=== PATIENT | female | born 1960 | race Caucasian/White ===

== ENCOUNTER 2024-07-01 18:37 | Emergency (ER) | payer SELFPAY ==
[2024-07-01 18:43] VITALS: BP 172/116; PULSE 95; RESP 18; TEMP 36.8; O2SAT 93; BMI 31.3
--- NOTE | 2024-07-01 18:48 | ECG_ITS ---
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 Measurements Intervals [place] Rate: 90 P: 83 AL: 145 QRS: 105 QRSD: 97 T: 86 QT: 369 QTc: 452 Interpretive Statements SINUS RHYTHM POSSIBLE RIGHT VENTRICULAR HYPERTROPHY [SOME/ALL OF: PROMINENT R IN V1, LATE TRANSITION, RAD, MARISELA, SSS] No previous ECG available for comparison Electronically Signed On 07-02-2024 13:25:25 IUSS ACOUSTIC ANALYST by Tong Lyn M.D. [id number]
--- NOTE | 2024-07-01 19:39 | XRR_ITS ---
PROCEDURE INFORMATION: Exam: XR Chest Exam date and time: 07/01/2024 8:41 PM Age: 63 years old Clinical indication: Cough and shortness of breath; Patient HX: Cough; SOB TECHNIQUE: Imaging protocol: Radiologic exam of the chest. Views: 1 view. COMPARISON: No relevant prior studies available. FINDINGS: Lungs: Patchy peripheral right lung opacities. Pleural spaces: No pleural effusion. No pneumothorax. Heart/Mediastinum: No cardiomegaly. Bones/joints: No acute findings. XR/XR chest 1V portable [id number] IMPRESSION: Patchy peripheral right lung opacities concerning for infection. Recommend follow-up imaging to ensure resolution.
[2024-07-01 20:33] LABS: Covid PCR NEGATIVE (Negative); Influenza A NEGATIVE (Negative); Influenza B NEGATIVE (Negative); Respiratory Syncytial Virus Ce NEGATIVE (Negative)
[2024-07-01] MEDS: methylPREDNISolone sod succ 125 mg/2 mL INJ IVP (21:19)
[2024-07-01] MEDS: doxycycline 100 mg Tablet PO (21:19)
[2024-07-01 21:36] VITALS: BP 156/93; PULSE 93; O2SAT 93
[2024-07-01 21:40] VITALS: PULSE 71; RESP 18; O2SAT 94
[2024-07-01] MEDS: ipratropium-albuterol 3 mL Neb INHALATION ×3 (21:40→23:55)
[2024-07-01 21:47] VITALS: PULSE 69
[2024-07-01 22:48] VITALS: BP 145/77; PULSE 86; RESP 18; O2SAT 91
--- NOTE | 2024-07-01 23:19 | W.ED.URI ---
Documented by User: JON Myers 07/02/24 01:04 HPI - URI/Sore Throat General: Chief Complaint: Upper Respiratory Infection Stated Complaint: Cant Breathe SOB Time Seen by Provider: 07/01/24 20:42 History of Present Illness: Patient is a 63-year-old female that presents to the emergency department with complaints of URI type symptoms and shortness of breath. Onset of symptoms 1 month ago but just not getting better. She arrived in the emergency department with oxygen saturation in the low 90s. She has a very coarse cough. Patient denies fevers but reports chills. She denies prior pulmonary history. Denies primary care services. Takes no routine medicines. Associated symptoms: Reports chills and fever(s) Related Data Previous Rx's Medication Instructions Recorded albuterol 90 mcg-budesonide 80 2 inh inhalation QID PRN shortness 07/01/24 mcg/actuation HFA aerosol inhaler of breath #5.9 grams doxycycline hyclate 100 mg tablet 100 mg PO BID 5 days #10 tabs 07/01/24 Allergies Allergy/AdvReac Type Severity Reaction Status Date / Time meperidine [From Demerol] Allergy ADR-Fatigue Verified 07/01/24 18:45 d Review of Systems General: Reports: 10 or more systems reviewed and unremarkable except in HPI and below Const: Reports: fever(s), chills and fatigue Resp: Reports: dyspnea, productive cough, wheezing, change in phlegm color and chest congestion Physical Exam Const: COMMON NORMALS: no acute distress, patient oriented x3 and alert GENERAL APPEARANCE: cooperative ORIENTATION/CONSCIOUSNESS: Yes awake, Yes oriented to person, Yes oriented to place and Yes oriented to time HENMT: COMMON NORMALS: normocephalic and atraumatic HEAD & SCALP: normocephalic and atraumatic FACE & SINUS: normal facial exam MOUTH: Normal oral and palatal mucosa present THROAT: posterior oropharynx normal Chest: COMMONS NORMALS: normal inspection of the chest Breast/axilla inspection: Yes no chest deformity, asymmetry, normal contours, no nodules, masses, tenderness Resp: COMMON NORMALS: normal respiratory effort, No retractions and No use of accessory muscles EFFORT & INSPECTION: Yes able to speak in complete sentences and Yes symmetric chest movement AUSCULTATION: rhonchi, wheezes and diminished lung sounds bilateral and diffuse Cardio: COMMON NORMALS: regular rate, regular rhythm and Peripheral pulses 2+ throughout RATE: regular rate RHYTHM: regular rhythm PERIPHERAL PULSES: Peripheral pulses 2+ throughout GI: COMMON NORMALS: Normal to inspection, nondistended, normoactive bowel sounds present, Soft to palpation, non-tender and No hepatosplenomegaly present INSPECTION: Yes normal to inspection AUSCULTATION: Yes normoactive bowel sounds PALPATION: Yes Soft to palpation and Yes No hepatosplenomegaly present RECTAL EXAM: deferred Neuro: COMMON NORMALS: patient oriented x3 SENSORIUM/ORIENTATION: Yes alert, Yes oriented to person, Yes oriented to place and Yes oriented to time CRANIAL NERVES: Yes CN normal except as noted Psych: COMMON NORMALS: mental status grossly normal, Normal thought process present, cooperative, activity/motor behavior normal, denies homicidal ideation and denies suicidal ideation THOUGHT PROCESS: Normal thought process present Skin: COMMON NORMALS: no rashes or lesions noted, no wounds and turgor normal GENERAL SKIN EXAM: no rashes or lesions noted and turgor normal Course Vital Signs: Vital signs: Vital Signs Temperature 98.4 F 07/02/24 02:55 Pulse Rate 95 07/02/24 02:55 Respiratory Rate 20 H 07/02/24 02:55 Blood Pressure 167/98 07/02/24 02:55 Pulse Oximetry 91 07/02/24 02:55 Oxygen Delivery Me thod Room Air 07/02/24 00:55 Oxygen Flow Rate 3 07/02/24 00:55 MDM - URI/Sore Throat Medical Decision Making Patient was evaluated in the emergency department today for complaints of cough, congestion and other URI type symptoms. Patient underwent EKG which reveals a sinus rhythm at a rate of 90 beats a minute and a QTc of 417. There is no ectopy, ST elevation or abnormal T wave inversion. Patient underwent laboratory evaluation that included testing for COVID flu and RSV. Patient also underwent chest x-ray which reveals patchy peripheral right lung opacity concerning for infection. Patient was treated here in the emergency department with several breathing treatments, Acapella, doxycycline and methylprednisolone. Patient is can to be treated at home with doxycycline but her oxygen saturation continued to decline. Currently she is 87% on room air with a Xopenex treatment. Patient was offered admission but is declining. She does qualify for home O2. We are going to arrange for her to get some oxygen at home and have child protective services social worker assist in setting up primary care services on Wednesday. I reviewed the case with Dr. Velasco who is in agreement. At this time no further diagnostics are warranted and all questions were answered While awaiting oxygen delivery I will be transitioning care to Dr. Velasco Lab Data 07/02/24 01:12 07/02/24 01:12 Radiology Impressions Chest X-Ray 07/01/24 19:39 IMPRESSION: Patchy peripheral right lung opacities concerning for infection. Recommend follow-up imaging to ensure resolution. Laboratory Results WBC 3.84 10^3/uL (3.29-11.43) 07/02/24 01:12 RBC 5.52 10^6/uL (3.85-5.65) 07/02/24 01:12 Hgb 15.80 g/dL (11.27-16.99) 07/02/24 01:12 Hct 49.1 % (36-47) H 07/02/24 01:12 MCV 88.9 fl (85-98) 07/02/24 01:12 MCH 28.6 pg (27-33) 07/02/24 01:12 MCHC 32.2 g/dL (30-55) 07/02/24 01:12 RDW 13.2 % (12.1-15.1) 07/02/24 01:12 Plt Count 252 10^3/cmm (157-399) 07/02/24 01:12 MPV 10.7 fL (7.4-10.4) H 07/02/24 01:12 Neut % (Auto) 76.3 % 07/02/24 01:12 Lymph % (Auto) 20.6 % 07/02/24 01:12 [place] % (Auto) 1.8 % 07/02/24 01:12 Eos % (Auto) 0.3 % 07/02/24 01:12 Baso % (Auto) 0.5 % 07/02/24 01:12 Neut # (Auto) 2.93 10^3/uL (1.8-7.7) 07/02/24 01:12 Lymph # (Auto) 0.8 10^3/uL (0.8-4.8) 07/02/24 01:12 [place] # (Auto) 0.1 10^3/uL (0.2-0.9) L 07/02/24 01:12 Eos # (Auto) 0.0 10^3/uL (0.0-0.8) 07/02/24 01:12 Baso # (Auto) 0.0 10^3/uL (0.0-0.1) 07/02/24 01:12 Nucleated RBC % (auto) 0 % 07/02/24 01:12 Nucleated RBCs # 0.0 /100WBC 07/02/24 01:12 Sodium 136 mmol/L (136-145) 07/02/24 01:12 Potassium 3.9 mmol/L (3.5-5.1) 07/02/24 01:12 Chloride 92 mmol/L (98-107) L 07/02/24 01:12 Carbon Dioxide 21 mmol/L (22-29) L 07/02/24 01:12 Anion Gap 26.9 (5-19) H 07/02/24 01:12 BUN 10 mg/dL (8-23) 07/02/24 01:12 Creatinine 0.7 mg/dL (0.5-0.9) 07/02/24 01:12 GFR Calculation 84.8 mL/min (90-130) L 07/02/24 01:12 Glucose 289 mg/dL (65-115) H 07/02/24 01:12 Calculated Osmolality 292 mOsm/kg (285-295) 07/02/24 01:12 Calcium 8.8 mg/dL (8.5-10.5) 07/02/24 01:12 Total Bilirubin 0.2 mg/dL (0.15-1.2) 07/02/24 01:12 AST 41 U/L (0-32) H 07/02/24 01:12 ALT 47 U/L (0-33) H 07/02/24 01:12 Alkaline Phosphatase 148 U/L (35-105) H 07/02/24 01:12 Total Protein 7.5 g/dL (6.6-8.7) 07/02/24 01:12 Albumin 3.9 g/dL (3.5-5.2) 07/02/24 01:12 Globulin 3.6 g/dL (1.3-4.6) 07/02/24 01:12 Coronavirus (PCR) Negative (Negative) 07/01/24 18:51 Influenza A (PCR) Negative (Negative) 07/01/24 18:51 Influenza Type B (PCR) Negative (Negative) 07/01/24 18:51 RSV (PCR) Negative (Negative) 07/01/24 18:51 All radiology interpretation(s) finalized by discharge Discharge Plan Discharge Patient Disposition: Home Clinical Impression: Community acquired pneumonia Condition: Stable Prescriptions: New doxycycline hyclate 100 mg tablet 100 mg PO BID 5 Days Qty: 10 0RF albuterol-budesonide 90-80 mcg/actuation HFA aerosol inhaler 2 inh inhalation QID PRN (Reason: shortness of breath) Qty: 5.9 0RF Discharge Orders: Discharge ED (Routine); Ordered 07/02/24 Ordered By: Cliff Tirado Other Ambulatory Orders: DME: Oxygen (Order) Location: None Selected Ordered By: Cliff Tirado Referrals: Frederic Cazares MD [Primary Care Provider] - Discharge Diet: Advance as tolerated Discharge Activity: Resume usual activity Patient Instructions: Using Oxygen at Home (ED), Pneumonia (ED), Pain Management Activity Restrictions/Additional Instructions: Please use your oxygen at home as prescribed Please take your antibiotics as prescribed Please use your inhaler as prescribed We have asked the child protective services social worker to assist in setting up primary care services. Coding Level of Care Code ED Art Sales Consultant for [employer] Documented by User: Greg Velasco, 07/02/24 15:20 HPI - URI/Sore Throat General: Chief Complaint: Upper Respiratory Infection Stated Complaint: Cant Breathe SOB Time Seen by Provider: 07/01/24 20:42 Related Data Previous Rx's Medication Instructions Recorded albuterol 90 mcg-budesonide 80 2 inh inhalation QID PRN shortness 07/01/24 mcg/actuation HFA aerosol inhaler of breath #5.9 grams doxycycline hyclate 100 mg tablet 100 mg PO BID 5 days #10 tabs 07/01/24 Allergies Allergy/AdvReac Type Severity Reaction Status Date / Time meperidine [From Demerol] Allergy ADR-Fatigue Verified 07/01/24 18:45 d Course Vital Signs: Vital signs: Vital Signs Temperature 98.4 F 07/02/24 02:55 Pulse Rate 95 07/02/24 02:55 Respiratory Rate 20 H 07/02/24 02:55 Blood Pressure 167/98 07/02/24 02:55 Pulse Oximetry 91 07/02/24 02:55 Oxygen Delivery Me thod Room Air 07/02/24 00:55 Oxygen Flow Rate 3 07/02/24 00:55 MDM - URI/Sore Throat Medical Decision Making Patient was evaluated in the emergency department today for complaints of cough, congestion and other URI type symptoms. Patient underwent EKG which reveals a sinus rhythm at a rate of 90 beats a minute and a QTc of 417. There is no ectopy, ST elevation or abnormal T wave inversion. Patient underwent laboratory evaluation that included testing for COVID flu and RSV. Patient also underwent chest x-ray which reveals patchy peripheral right lung opacity concerning for infection. Patient was treated here in the emergency department with several breathing treatments, Acapella, doxycycline and methylprednisolone. Patient is can to be treated at home with doxycycline but her oxygen saturation continued to decline. Currently she is 87% on room air with a Xopenex treatment. Patient was offered admission but is declining. She does qualify for home O2. We are going to arrange for her to get some oxygen at home and have child protective services social worker assist in setting up primary care services on Wednesday. I reviewed the case with Dr. Velasco who is in agreement. At this time no further diagnostics are warranted and all questions were answered While awaiting oxygen delivery I will be transitioning care to Dr. Velasco This patient was originally seen by TARIQ Browne. I agree with her history, evaluation, and treatment. The patient was evaluated for need for home oxygen in the emergency department. Have obtained that for her. She'll be discharged. She knows she knows to return for any worsening symptoms despite treatment. Lab Data 07/02/24 01:12 07/02/24 01:12 Radiology Impressions Chest X-Ray 07/01/24 19:39 IMPRESSION: Patchy peripheral right lung opacities concerning for infection. Recommend follow-up imaging to ensure resolution. Laboratory Results WBC 3.84 10^3/uL (3.29-11.43) 07/02/24 01:12 RBC 5.52 10^6/uL (3.85-5.65) 07/02/24 01:12 Hgb 15.80 g/dL (11.27-16.99) 07/02/24 01:12 Hct 49.1 % (36-47) H 07/02/24 01:12 MCV 88.9 fl (85-98) 07/02/24 01:12 MCH 28.6 pg (27-33) 07/02/24 01:12 MCHC 32.2 g/dL (30-55) 07/02/24 01:12 RDW 13.2 % (12.1-15.1) 07/02/24 01:12 Plt Count 252 10^3/cmm (157-399) 07/02/24 01:12 MPV 10.7 fL (7.4-10.4) H 07/02/24 01:12 Neut % (Auto) 76.3 % 07/02/24 01:12 Lymph % (Auto) 20.6 % 07/02/24 01:12 [place] % (Auto) 1.8 % 07/02/24 01:12 Eos % (Auto) 0.3 % 07/02/24 01:12 Baso % (Auto) 0.5 % 07/02/24 01:12 Neut # (Auto) 2.93 10^3/uL (1.8-7.7) 07/02/24 01:12 Lymph # (Auto) 0.8 10^3/uL (0.8-4.8) 07/02/24 01:12 [place] # (Auto) 0.1 10^3/uL (0.2-0.9) L 07/02/24 01:12 Eos # (Auto) 0.0 10^3/uL (0.0-0.8) 07/02/24 01:12 Baso # (Auto) 0.0 10^3/uL (0.0-0.1) 07/02/24 01:12 Nucleated RBC % (auto) 0 % 07/02/24 01:12 Nucleated RBCs # 0.0 /100WBC 07/02/24 01:12 Sodium 136 mmol/L (136-145) 07/02/24 01:12 Potassium 3.9 mmol/L (3.5-5.1) 07/02/24 01:12 Chloride 92 mmol/L (98-107) L 07/02/24 01:12 Carbon Dioxide 21 mmol/L (22-29) L 07/02/24 01:12 Anion Gap 26.9 (5-19) H 07/02/24 01:12 BUN 10 mg/dL (8-23) 07/02/24 01:12 Creatinine 0.7 mg/dL (0.5-0.9) 07/02/24 01:12 GFR Calculation 84.8 mL/min (90-130) L 07/02/24 01:12 Glucose 289 mg/dL (65-115) H 07/02/24 01:12 Calculated Osmolality 292 mOsm/kg (285-295) 07/02/24 01:12 Calcium 8.8 mg/dL (8.5-10.5) 07/02/24 01:12 Total Bilirubin 0.2 mg/dL (0.15-1.2) 07/02/24 01:12 AST 41 U/L (0-32) H 07/02/24 01:12 ALT 47 U/L (0-33) H 07/02/24 01:12 Alkaline Phosphatase 148 U/L (35-105) H 07/02/24 01:12 Total Protein 7.5 g/dL (6.6-8.7) 07/02/24 01:12 Albumin 3.9 g/dL (3.5-5.2) 07/02/24 01:12 Globulin 3.6 g/dL (1.3-4.6) 07/02/24 01:12 Coronavirus (PCR) Negative (Negative) 07/01/24 18:51 Influenza A (PCR) Negative (Negative) 07/01/24 18:51 Influenza Type B (PCR) Negative (Negative) 07/01/24 18:51 RSV (PCR) Negative (Negative) 07/01/24 18:51 Discharge Plan Discharge Patient Disposition: Home Clinical Impression: Community acquired pneumonia Condition: Stable Prescriptions: New doxycycline hyclate 100 mg tablet 100 mg PO BID 5 Days Qty: 10 0RF albuterol-budesonide 90-80 mcg/actuation HFA aerosol inhaler 2 inh inhalation QID PRN (Reason: shortness of breath) Qty: 5.9 0RF Discharge Orders: Discharge ED (Routine); Ordered 07/02/24 Ordered By: Cliff Tirado Other Ambulatory Orders: DME: Oxygen (Order) Location: None Selected Ordered By: Cliff Tirado Referrals: Frederic Cazares MD [Primary Care Provider] - Discharge Diet: Advance as tolerated Discharge Activity: Resume usual activity Patient Instructions: Using Oxygen at Home (ED), Pneumonia (ED), Pain Management Activity Restrictions/Additional Instructions: Please use your oxygen at home as prescribed Please take your antibiotics as prescribed Please use your inhaler as prescribed We have asked the child protective services social worker to assist in setting up primary care services. Coding Level of Care Code ED Art Sales Consultant for Daisha Pena
[2024-07-01 23:55] VITALS: PULSE 82; RESP 17; O2SAT 90
[2024-07-02 00:45] VITALS: PULSE 87; RESP 18; O2SAT 87
[2024-07-02] MEDS: levalbuterol 1.25 mg/3 mL Neb INHALATION (00:45)
[2024-07-02 00:54] VITALS: PULSE 88
[2024-07-02 00:55] VITALS: BP 138/89; PULSE 104; RESP 18; O2SAT 80; O2SAT 87; O2SAT 92
--- NOTE | 2024-07-02 01:16 | ED_ITS ---
HPI - Pediatric SOB/Dyspnea 2 General: Chief Complaint: Upper Respiratory Infection Stated Complaint: Cant Breathe SOB Time Seen by Provider: 07/01/24 20:42 Related Data Previous Rx's Medication Instructions Recorded albuterol 90 mcg-budesonide 80 2 inh inhalation QID PRN shortness 07/01/24 mcg/actuation HFA aerosol inhaler of breath #5.9 grams doxycycline hyclate 100 mg tablet 100 mg PO BID 5 days #10 tabs 07/01/24 Allergies Allergy/AdvReac Type Severity Reaction Status Date / Time meperidine [From Demerol] Allergy ADR-Fatigue Verified 07/01/24 18:45 d Course 2 Vital Signs: Vital signs: Vital Signs Temperature 98.3 F 07/01/24 18:43 Pulse Rate 104 H 07/02/24 00:55 Respiratory Rate 18 07/02/24 00:55 Blood Pressure 138/89 07/02/24 00:55 Pulse Oximetry 87 L 07/02/24 00:55 Oxygen Delivery Me thod Room Air 07/02/24 00:55 Oxygen Flow Rate 3 07/02/24 00:55 Medical Decision Making Lab Data 07/02/24 01:12 07/02/24 01:12 Radiology Impressions Chest X-Ray 07/01/24 19:39 IMPRESSION: Patchy peripheral right lung opacities concerning for infection. Recommend follow-up imaging to ensure resolution. Laboratory Results Coronavirus (PCR) Negative (Negative) 07/01/24 18:51 Influenza A (PCR) Negative (Negative) 07/01/24 18:51 Influenza Type B (PCR) Negative (Negative) 07/01/24 18:51 RSV (PCR) Negative (Negative) 07/01/24 18:51 Discharge Plan Discharge Patient Disposition: Home Clinical Impression: Community acquired pneumonia Condition: Stable Prescriptions: New doxycycline hyclate 100 mg tablet 100 mg PO BID 5 Days Qty: 10 0RF albuterol-budesonide 90-80 mcg/actuation HFA aerosol inhaler 2 inh inhalation QID PRN (Reason: shortness of breath) Qty: 5.9 0RF Discharge Orders: Discharge ED (Routine); Ordered 07/02/24 Ordered By: Cliff Tirado Other Ambulatory Orders: DME: Oxygen (Order) Location: None Selected Ordered By: Cliff Tirado Referrals: Frederic Cazares MD [Primary Care Provider] - Discharge Diet: Advance as tolerated Discharge Activity: Resume usual activity Patient Instructions: Using Oxygen at Home (ED), Pneumonia (ED), Pain Management Activity Restrictions/Additional Instructions: Please use your oxygen at home as prescribed Please take your antibiotics as prescribed Please use your inhaler as prescribed We have asked the case management social worker to assist in setting up primary care services. Coding Level of Care Code ED Assembler Ping Pong Table for Daisha Pena
[2024-07-02 01:23] LABS: Basophils % 0.5 %; Eosinophils % 0.3 %; Hematocrit 49.1 % (36-47); Lymphocytes # 0.8 10^3/uL (0.8-4.8); Lymphocytes % 20.6 %; Mean Corpuscular HGB Conc 32.2 g/dL (30-55); Mean Corpuscular Hemoglobin 28.6 pg (27-33); Mean Corpuscular Volume 88.9 fl (85-98); Mean Platelet Volume 10.7 fL (7.4-10.4); Monocytes # 0.1 10^3/uL (0.2-0.9); Monocytes % 1.8 %; Neutrophils # 2.93 10^3/uL (1.8-7.7); Neutrophils % 76.3 %; Nucleated Red Blood Cells % 0 %; Platelet Count 252 10^3/cmm (157-399); Red Blood Count 5.52 10^6/uL (3.85-5.65); Red Cell Distribution Width 13.2 % (12.1-15.1); White Blood Count 3.84 10^3/uL (3.29-11.43)
[2024-07-02 01:38] LABS: Alanine Aminotransferase 47 U/L (0-33); Albumin Level 3.9 g/dL (3.5-5.2); Alkaline Phosphatase 148 U/L (35-105); Anion Gap 26.9 (5-19); Aspartate Amino Transferase 41 U/L (0-32); Blood Urea Nitrogen 10 mg/dL (8-23); Calcium 8.8 mg/dL (8.5-10.5); Carbon Dioxide 21 mmol/L (22-29); Chloride 92 mmol/L (98-107); Creatinine Clr Calc Pharmacy 96.3549; Globulin 3.6 g/dL (1.3-4.6); Glomerular Filtration Rate 84.8 mL/min (90-130); Glucose 289 mg/dL (65-115); Osmolality Calculated 292 mOsm/kg (285-295); Potassium 3.9 mmol/L (3.5-5.1); Sodium 136 mmol/L (136-145); Total Bilirubin 0.2 mg/dL (0.15-1.2); Total Protein 7.5 g/dL (6.6-8.7)
[2024-07-02 02:55] VITALS: BP 167/98; PULSE 95; RESP 20; TEMP 36.9; O2SAT 91
--- NOTE | 2024-07-03 07:09 | DCPLANNER ---
messaged [facility] for er f/u
== END 2024-07-02 02:56 | disposition home or self-care (01) ==
PROVIDERS: Emergency Provider Nurse Practitioner; PCP Family Medicine
DX: J18.9 Pneumonia, unspecified organism (principal); Z11.52 Encounter for screening for COVID-19
CPT/HCPCS: 71045; 80053; 85025; 87637; 93005; 94640; 94760; 96374; 99285; J2919; J7614